=== PATIENT | male | born 1990 | race Hispanic/Latino ===

== ENCOUNTER 2024-05-30 09:05 | Emergency (ER) | payer OTHER, MEDICAID ==
[~2024-05-30] VITALS: Ht 167.6 cm; Wt 64.0 kg
[2024-05-30] MEDS ORDERED: DIPHTH,PERTUSS(ACELL),TET VAC 0.5 ML SYRINGE IM ONE (09:30)
[2024-05-30] MEDS ORDERED: BACITRACIN 0.9 GM 1 PKT PKT TOP ONE (09:30)
[2024-05-30 10:14] VITALS: BP 136/77
== END 2024-05-30 10:15 | disposition home or self-care (01) ==
LOC: ED 09:05
DX: S51.812A Laceration without foreign body of left forearm, initial encounter (principal); W27.0XXA Contact with workbench tool, initial encounter
CPT/HCPCS: 12002; 90471; 90715; 99282-25